=== PATIENT | female | born 1955 | race Hispanic/Latino ===

== ENCOUNTER 2020-06-22 18:50 | Emergency (ER) | payer MEDICARE ==
[~2020-06-22] VITALS: Ht 152.4 cm; Wt 98.9 kg
[2020-06-22] MEDS ORDERED: PANTOPRAZOLE 40 MG 10ML VIAL IV STA (19:34)
[2020-06-22] MEDS ORDERED: CEFEPIME 1GM/NS 0.9% 50 ML 50 ML IV STA (19:49)
[2020-06-22] MEDS ORDERED: SODIUM CHLORIDE 0.9% 1000ML 1,000 ML IV STA (19:49)
[2020-06-22 20:34] LABS: BASOPHILS % 0.3 % (0.0-1.0); HEMATOCRIT 24.4 % (34.2-44.1); HEMOGLOBIN 7.6 g/dL (12.0-16.0); LYMPHOCYTES # (AUTO) 0.5 (1.0-3.2); LYMPHOCYTES % 16.9 % (18.0-39.1); MEAN CORPUSCULAR HGB CONC 31.1 g/dL (31-35); MEAN CORPUSCULAR VOLUME 106.1 fL (81-99); MONOCYTES # (AUTO) 0.1 (0.2-0.8); MONOCYTES % 3.6 % (4.4-11.3); NEUTROPHILS # (AUTO) 2.4 (2.1-6.9); NEUTROPHILS % 78.9 % (38.7-80.0); PLATELET COUNT 119 x10e3/uL (140-360); RED CELL DISTRIBUTION WIDTH 17.3 % (11.7-14.4)
[2020-06-22] MEDS ORDERED: CEFEPIME HCL 1 GM VIAL ONE (20:48)
[2020-06-22] MEDS ORDERED: SODIUM CHLORIDE 0.9% 50ML 50 ML ONE ×2 (20:48→21:17)
[2020-06-22 20:54] LABS: ALANINE AMINOTRANSFERASE 36 IU/L (0-55); ALBUMIN 1.9 g/dL (3.5-5.0); ALBUMIN/GLOBULIN RATIO 0.5 (0.8-2.0); ALKALINE PHOSPHATASE 172 IU/L (40-150); ANION GAP 13.5 mmol/L (8-16); BLOOD UREA NITROGEN 39 mg/dL (7-26); BUN/CREATININE RATIO 49 (6-25); CALCIUM 7.2 mg/dL (8.4-10.2); CARBON DIOXIDE 21 mmol/L (22-29); CHLORIDE 104 mmol/L (98-107); CREATINE KINASE 69 IU/L (29-168); CREATININE, SERUM 0.79 mg/dL (0.57-1.11); EST GLOMERULAR FILTRATION RATE > 60 ML/MIN (60-); GLUCOSE 300 mg/dL (74-118); POTASSIUM 4.5 mmol/L (3.5-5.1); SODIUM 134 mmol/L (136-145)
[2020-06-22] MEDS ORDERED: IOPAMIDOL 370 MG/ML 200 ML INFUS..BTL INJ ONE (21:17)
[2020-06-22] MEDS ORDERED: SODIUM CHLORIDE 0.9% 250ML 250 ML IV ONE (22:00)
[2020-06-23 00:34] LABS: INR 0.85; PROTHROMBIN TIME 12.2 seconds (11.9-14.5)
[2020-06-23] MEDS ORDERED: SODIUM CHLORIDE 0.9% 250ML 250 ML ONE (03:03)
[2020-06-23] MEDS ORDERED: ACYCLOVIR400 MG PO (04:50)
[2020-06-23] MEDS ORDERED: BUSPIRONE HCL10 MG PO (04:50)
[2020-06-23] MEDS ORDERED: AMBIEN10 MG PO (04:50)
[2020-06-23] MEDS ORDERED: LEVEMIR FL100 UNIT/1 SC (04:50)
[2020-06-23] MEDS ORDERED: ALENDRONATE SOD70 MG PO (04:50)
[2020-06-23] MEDS ORDERED: ENALAPRIL MALEA20 MG PO (04:50)
[2020-06-23] MEDS ORDERED: DULOXETINE HCL30 MG PO (04:50)
[2020-06-23] MEDS ORDERED: PREDNISONE5 MG PO (04:50)
[2020-06-23] MEDS ORDERED: NOVOLOG100 UNITS1 (04:50)
[2020-06-23] MEDS ORDERED: FUROSEMIDE20 MG PO (04:50)
[2020-06-23] MEDS ORDERED: GABAPENTIN300 MG PO (04:50)
[2020-06-23] MEDS ORDERED: IMURAN50 MG PO (04:50)
[2020-06-23] MEDS ORDERED: HYDRALAZINE HCL25 MG PO (04:50)
[2020-06-23] MEDS ORDERED: PANTOPRAZOLE SO40 MG PO (04:50)
== END 2020-06-23 03:25 | disposition other institution (70) ==
LOC: ER 19:07
DX: K92.0 Hematemesis (principal); I10 Essential (primary) hypertension; E11.9 Type 2 diabetes mellitus without complications; Z20.822 Contact with and (suspected) exposure to COVID-19
CPT/HCPCS: 36415; 71045; 74177; 80053; 82550; 82553; 83605; 84484; 85025; 85610; 86850; 86900; 86920; 87040; 93005; 99284; C9113; J0692 ×2; J7030; J7050 ×2; P9016; Q9967; U0002

== ENCOUNTER 2020-07-13 19:48 | Inpatient (IN) | payer MEDICARE ==
[~2020-07-13] VITALS: Ht 152.4 cm; Wt 98.9 kg
[~2020-07-13 19:48] MED LIST: ACYCLOVIR400 MG PO; ALENDRONATE SOD70 MG PO; AMBIEN10 MG PO; BUSPIRONE HCL10 MG PO; DULOXETINE HCL30 MG PO; ENALAPRIL MALEA20 MG PO; FUROSEMIDE20 MG PO; GABAPENTIN300 MG PO; HYDRALAZINE HCL25 MG PO; IMURAN50 MG PO; LEVEMIR FL100 UNIT/1 SC; NOVOLOG100 UNITS1; PANTOPRAZOLE SO40 MG PO; PREDNISONE5 MG PO
[2020-07-13] MEDS ORDERED: PANTOPRAZOLE 40 MG 10ML VIAL IV STA (20:11)
[2020-07-13] MEDS ORDERED: ASPIRIN 81 MG CHEW TAB PO ONE (20:15)
[2020-07-13 20:36] LABS: LYMPHOCYTES # (AUTO) 0.7 (1.0-3.2); MEAN CORPUSCULAR HEMOGLOBIN 31.2 pg (28-32); MEAN CORPUSCULAR HGB CONC 30.7 g/dL (31-35); MEAN CORPUSCULAR VOLUME 101.4 fL (81-99); MONOCYTES # (AUTO) 0.1 (0.2-0.8); MONOCYTES % 2.6 % (4.4-11.3); NEUTROPHILS # (AUTO) 1.5 (2.1-6.9); PLATELET COUNT 134 x10e3/uL (140-360); RED BLOOD COUNT 2.15 x10e6/uL (3.6-5.1); RED CELL DISTRIBUTION WIDTH 18.7 % (11.7-14.4)
[2020-07-13 20:40] LABS: HEMATOCRIT 21.8 % (34.2-44.1); HEMOGLOBIN 6.7 g/dL (12.0-16.0)
[2020-07-13 20:57] LABS: ALANINE AMINOTRANSFERASE 33 IU/L (0-55); ALBUMIN 2.1 g/dL (3.5-5.0); ALBUMIN/GLOBULIN RATIO 0.6 (0.8-2.0); ALKALINE PHOSPHATASE 167 IU/L (40-150); ANION GAP 11.1 mmol/L (8-16); BLOOD UREA NITROGEN 40 mg/dL (7-26); BUN/CREATININE RATIO 49 (6-25); CALCIUM 7.7 mg/dL (8.4-10.2); CARBON DIOXIDE 20 mmol/L (22-29); CHLORIDE 103 mmol/L (98-107); CREATINE KINASE 95 IU/L (29-168); CREATININE, SERUM 0.82 mg/dL (0.57-1.11); EST GLOMERULAR FILTRATION RATE > 60 ML/MIN (60-); GLUCOSE 351 mg/dL (74-118); POTASSIUM 4.1 mmol/L (3.5-5.1); SODIUM 130 mmol/L (136-145)
[2020-07-13] MEDS ORDERED: OCTREOTIDE ACETATE 500 MCG in SODIUM CHLORIDE 0.9% 250ML 250 ML IV STA (20:58)
[2020-07-13] MEDS ORDERED: SODIUM CHLORIDE 0.9% 250ML 250 ML IV ONE (21:00)
[2020-07-13] MEDS ORDERED: OCTREOTIDE ACETATE 0.05 MG in SODIUM CHLORIDE 0.9% 250ML 250 ML IV STA (21:45)
[2020-07-13] MEDS: PANTOPRAZOLE INJ 40 MG in SODIUM CHLORIDE 0.9% 50ML 50 ML IV SCH (21:51)
[2020-07-13] MEDS ORDERED: SODIUM CHLORIDE 0.9% IV STA (21:55)
[2020-07-13] MEDS ORDERED: OCTREOTIDE ACETATE IV STA (21:55)
[2020-07-13 22:30] VITALS: BP 148/77
[2020-07-14] VITALS (8 sets, daily range): BP systolic 117–148; BP diastolic 59–87
[2020-07-14] MEDS ORDERED: SODIUM CHLORIDE 0.9% 250ML 250 ML ONE ×2 (00:45→08:41)
[2020-07-14 00:49] LABS: INR 0.81; PROTHROMBIN TIME 11.8 seconds (11.9-14.5)
[2020-07-14 00:55] LABS: % IRON SATURATION 8 % (15-50); IRON 31 ug/dL (50-170); TOTAL IRON BINDING CAPACITY 367 ug/dL (261-478); TRANSFERRIN 262 mg/dL (180-382)
[2020-07-14] MEDS: PANTOPRAZOLE INJ 40 MG in SODIUM CHLORIDE 0.9% 50ML 50 ML IV SCH ×5 (01:51→21:15)
[2020-07-14] MEDS ORDERED: OCTREOTIDE ACETATE IV STA ×2 (02:34→02:52)
[2020-07-14] MEDS ORDERED: SODIUM CHLORIDE 0.9% IV STA ×2 (02:34→02:52)
[2020-07-14 03:56] LABS: INR 0.84; PROTHROMBIN TIME 12.1 seconds (11.9-14.5)
[2020-07-14] MEDS ORDERED: OCTREOTIDE ACETATE 0.05 MG/ML AMP ONE (04:02)
[2020-07-14] MEDS ORDERED: SUCRALFATE1 GM PO (08:23)
[2020-07-14] MEDS ORDERED: FLUCONAZOLE100 MG PO (08:23)
[2020-07-14] MEDS ORDERED: DEXTROSE 50% SYRINGE 50 ML IV PRN (11:00)
[2020-07-14] MEDS: IRON SUCROSE 100 MG in SODIUM CHLORIDE 0.9% 100 ML 100 ML IV SCH (12:06)
[2020-07-14] MEDS: CYANOCOBALAMIN INJ 1,000 MCG/ML VIAL IM SCH (12:11)
[2020-07-14] MEDS ORDERED: PROPOFOL IV EMULSION 10 MG/ML 20 ML VIAL ONE (12:46)
[2020-07-14] MEDS ORDERED: POVIDONE IODINE 0.05% 0.05 % ML PO ONE (12:46)
[2020-07-14] MEDS ORDERED: FENTANYL CITRATE/PF 100MCG/2 ML INJ ONE (13:12)
[2020-07-14] MEDS ORDERED: MIDAZOLAM HCL 2 MG/2 ML VIAL ONE (13:12)
[2020-07-14] MEDS: OCTREOTIDE ACETATE 500 MCG in SODIUM CHLORIDE 0.9% 250ML 249 ML IV SCH ×2 (13:45→18:30)
[2020-07-14 14:08] LABS: EOSINOPHILS % 0.7 % (0.0-6.0); HEMATOCRIT 26.8 % (34.2-44.1); HEMOGLOBIN 8.6 g/dL (12.0-16.0); LYMPHOCYTES # (AUTO) 0.5 (1.0-3.2); LYMPHOCYTES % 36.3 % (18.0-39.1); MEAN CORPUSCULAR HEMOGLOBIN 31.4 pg (28-32); MEAN CORPUSCULAR HGB CONC 32.1 g/dL (31-35); MEAN CORPUSCULAR VOLUME 97.8 fL (81-99); MONOCYTES # (AUTO) 0.1 (0.2-0.8); MONOCYTES % 10.4 % (4.4-11.3); NEUTROPHILS # (AUTO) 0.7 (2.1-6.9); NEUTROPHILS % 51.9 % (38.7-80.0); PLATELET COUNT 100 x10e3/uL (140-360); RED BLOOD COUNT 2.74 x10e6/uL (3.6-5.1); RED CELL DISTRIBUTION WIDTH 18.1 % (11.7-14.4)
[2020-07-14 14:29] LABS: ALANINE AMINOTRANSFERASE 32 IU/L (0-55); ALBUMIN 2.1 g/dL (3.5-5.0); ALBUMIN/GLOBULIN RATIO 0.6 (0.8-2.0); ALKALINE PHOSPHATASE 132 IU/L (40-150); ANION GAP 9.5 mmol/L (8-16); BLOOD UREA NITROGEN 24 mg/dL (7-26); BUN/CREATININE RATIO 40 (6-25); CALCIUM 7.7 mg/dL (8.4-10.2); CARBON DIOXIDE 24 mmol/L (22-29); CHLORIDE 110 mmol/L (98-107); EST GLOMERULAR FILTRATION RATE > 60 ML/MIN (60-); GLUCOSE 91 mg/dL (74-118); POTASSIUM 3.5 mmol/L (3.5-5.1); SODIUM 140 mmol/L (136-145)
[2020-07-14] MEDS ORDERED: ACETAMINOPHEN 325 MG TAB PO PRN (16:30)
[2020-07-14] MEDS ORDERED: TEMAZEPAM 7.5 MG CAP PO PRN (16:30)
[2020-07-14] MEDS ORDERED: POLYETHYLENE GLYCOL 3350 17 GM PACK PO PRN (16:30)
[2020-07-14] MEDS ORDERED: HYDRALAZINE HCL 20 MG/ML VIAL IV PRN (16:30)
[2020-07-14] MEDS ORDERED: ONDANSETRON HCL INJ 2MG/ML 2ML 2 MG/ML VIAL IV PRN (16:30)
[2020-07-14] MEDS ORDERED: TEMAZEPAM 15 MG CAP PO PRN (16:45)
[2020-07-14] MEDS: HYDRALAZINE HCL 25 MG TAB PO SCH (17:00)
[2020-07-14] MEDS: PREDNISONE 5 MG TAB PO SCH (17:00)
[2020-07-14] MEDS: AZATHIOPRINE 50 MG TAB PO SCH (17:00)
[2020-07-14] MEDS ORDERED: NON-FORMULARY MEDICATION (Enalapril Maleate 20 MG) PO SCH (17:00)
[2020-07-14] MEDS: DOCUSATE SODIUM 100 MG CAP PO SCH (17:00)
[2020-07-14] MEDS: ENALAPRIL MALEATE 10 MG TAB PO SCH (17:00)
[2020-07-14] MEDS: BUSPIRONE HCL 10 MG TABLET PO SCH (17:00)
[2020-07-14 17:57] LABS: CLARITY,URINE CLEAR (CLEAR); COLOR,URINE YELLOW (YELLOW)
[2020-07-14 17:58] LABS: KETONES,URINE NEGATIVE (NEGATIVE); LEUKOCYTE ESTERASE ,URINE SMALL (NEGATIVE); NITRITE,URINE POSITIVE (NEGATIVE); PROTEIN,URINE DIPSTICK NEGATIVE (NEGATIVE)
[2020-07-14 18:10] LABS: BACTERIA,URINE MODERATE /HPF
[2020-07-14] MEDS ORDERED: ZOLPIDEM TARTRATE 10 MG TAB PO SCH (21:00)
[2020-07-14] MEDS: GABAPENTIN 300 MG CAP PO SCH (21:15)
[2020-07-14] MEDS: SUCRALFATE 1 GM TAB PO SCH (21:15)
[2020-07-15 02:07] VITALS: BP 129/61
[2020-07-15] MEDS: PANTOPRAZOLE INJ 40 MG in SODIUM CHLORIDE 0.9% 50ML 50 ML IV SCH ×2 (03:00→09:45)
[2020-07-15] MEDS: OCTREOTIDE ACETATE 500 MCG in SODIUM CHLORIDE 0.9% 250ML 249 ML IV SCH (03:44)
[2020-07-15 04:52] LABS: BASOPHILS % 0.8 % (0.0-1.0); HEMATOCRIT 27.4 % (34.2-44.1); HEMOGLOBIN 8.6 g/dL (12.0-16.0); LYMPHOCYTES # (AUTO) 0.5 (1.0-3.2); LYMPHOCYTES % 41.4 % (18.0-39.1); MEAN CORPUSCULAR HEMOGLOBIN 30.5 pg (28-32); MEAN CORPUSCULAR HGB CONC 31.4 g/dL (31-35); MEAN CORPUSCULAR VOLUME 97.2 fL (81-99); MONOCYTES # (AUTO) 0.1 (0.2-0.8); MONOCYTES % 10.9 % (4.4-11.3); NEUTROPHILS # (AUTO) 0.6 (2.1-6.9); NEUTROPHILS % 46.9 % (38.7-80.0); PLATELET COUNT 102 x10e3/uL (140-360); RED BLOOD COUNT 2.82 x10e6/uL (3.6-5.1); RED CELL DISTRIBUTION WIDTH 18.3 % (11.7-14.4)
[2020-07-15 05:19] VITALS: BP 137/72
[2020-07-15 05:21] LABS: ALANINE AMINOTRANSFERASE 45 IU/L (0-55); ALBUMIN/GLOBULIN RATIO 0.6 (0.8-2.0); ALKALINE PHOSPHATASE 140 IU/L (40-150); ANION GAP 13.1 mmol/L (8-16); BLOOD UREA NITROGEN 18 mg/dL (7-26); BUN/CREATININE RATIO 29 (6-25); CALCIUM 7.6 mg/dL (8.4-10.2); CARBON DIOXIDE 23 mmol/L (22-29); CHLORIDE 106 mmol/L (98-107); CHOL/HDL RATIO 5.4 (3.0-3.6); CHOLESTEROL 158 MD/DL (0-199); CREATININE, SERUM 0.63 mg/dL (0.57-1.11); EST GLOMERULAR FILTRATION RATE > 60 ML/MIN (60-); GLUCOSE 164 mg/dL (74-118); HDL CHOLESTEROL 29 MG/DL (40-60); LDL CHOLESTEROL 91 MG/DL (60-130); MAGNESIUM 1.7 MG/DL (1.3-2.1); PHOSPHORUS 4.3 MG/DL (2.3-4.7); POTASSIUM 4.1 mmol/L (3.5-5.1); SODIUM 138 mmol/L (136-145); TRIGLYCERIDES 190 MG/DL (0-149)
[2020-07-15 05:33] LABS: THYROID STIMULATING HORMONE 0.577 uIU/mL (0.350-4.940)
[2020-07-15 06:30] LABS: ANISOCYTOSIS SLIGHT; EOSINOPHILS % (MANUAL) 1 % (0-7); LYMPHOCYTES % (MANUAL) 41 % (19-48); MONOCYTES % (MANUAL) 5 % (3.4-9.0); NEUTROPHILS % (MANUAL) 51 % (40-74); NUCLEATED RED BLOOD CELLS 1; PLATELET ESTIMATE SLIGHTLY DECREASED
[2020-07-15 06:31] LABS: OVALOCYTES MODERATE
[2020-07-15 06:32] LABS: SCHISTOCYTES FEW
[2020-07-15 06:33] LABS: ELLIPTOCYTE, RBC SLIGHT; PLATELET MORPHOLOGY COMMENT NORMAL; RBC MORPHOLOGY COMMENT ABNORMAL
[2020-07-15 08:42] VITALS: BP 159/89
[2020-07-15 08:58] VITALS: BP 159/89
[2020-07-15] MEDS ORDERED: ACYCLOVIR 200 MG CAP PO SCH (09:00)
[2020-07-15] MEDS ORDERED: ACYCLOVIR 400 MG PO SCH (09:00)
[2020-07-15] MEDS ORDERED: FUROSEMIDE 20 MG TAB PO SCH (09:00)
[2020-07-15] MEDS ORDERED: DULOXETINE HCL 30 MG DELAYED RELEASE PO SCH (09:00)
[2020-07-15] MEDS: PREDNISONE 5 MG TAB PO SCH ×2 (09:45→17:00)
[2020-07-15] MEDS: BUSPIRONE HCL 10 MG TABLET PO SCH ×2 (09:45→17:24)
[2020-07-15] MEDS: GABAPENTIN 300 MG CAP PO SCH ×2 (09:45→17:25)
[2020-07-15] MEDS: DOCUSATE SODIUM 100 MG CAP PO SCH ×2 (09:45→17:24)
[2020-07-15] MEDS: HYDRALAZINE HCL 25 MG TAB PO SCH ×2 (09:45→17:25)
[2020-07-15] MEDS: ENALAPRIL MALEATE 10 MG TAB PO SCH ×2 (09:45→17:00)
[2020-07-15] MEDS: SUCRALFATE 1 GM TAB PO SCH ×3 (09:45→17:25)
[2020-07-15] MEDS: AZATHIOPRINE 50 MG TAB PO SCH ×2 (09:45→17:24)
[2020-07-15 12:02] VITALS: BP 151/67
[2020-07-15] MEDS ORDERED: TRAMADOL HCL 50 MG TAB PO PRN (13:15)
[2020-07-15] MEDS: IRON SUCROSE 100 MG in SODIUM CHLORIDE 0.9% 100 ML 100 ML IV SCH (13:23)
[2020-07-15] MEDS: CYANOCOBALAMIN INJ 1,000 MCG/ML VIAL IM SCH (13:23)
[2020-07-15] MEDS ORDERED: ULTRAM 50MG50 MG PO (14:39)
[2020-07-15] MEDS ORDERED: SIMETHICONE80 MG PO (14:39)
[2020-07-15] MEDS ORDERED: CARAFATE1 GM PO (14:39)
[2020-07-15] MEDS ORDERED: Cyanocobalamin Inj IM (14:39)
[2020-07-15] MEDS ORDERED: MIRALAX17 GM PO (14:39)
[2020-07-15] MEDS ORDERED: PROTONIX IV40 MG IV (14:39)
[2020-07-15] MEDS ORDERED: ACETAMINOPHEN325 M1 PO (14:39)
[2020-07-15] MEDS ORDERED: HYDRALAZIN20 MG/1 ML IV (14:39)
[2020-07-15] MEDS ORDERED: VENOFER100 MG/5 M IV (14:39)
[2020-07-15] MEDS ORDERED: COLACE100 MG PO (14:39)
[2020-07-15] MEDS ORDERED: ONDANSETRON4 MG/2 M1 IV (14:39)
[2020-07-15] MEDS ORDERED: DEXTROSE 50%-WA50 M1 IV (14:39)
[2020-07-15] MEDS ORDERED: RESTORIL15 MG PO (14:39)
[2020-07-15] MEDS ORDERED: SODIUM CHLORIDE 0.9% 250ML 250 ML ONE (18:40)
== END 2020-07-15 18:43 | disposition short-term general hospital (02) | DRG 378 ==
LOC: ER 20:11 → ERHOLD 21:03 → MED/SURG2 22:30
PROVIDERS: ADMIT Internal Medicine; ATTEND Internal Medicine
PROC: 02HV33Z Insertion of Infusion Device into Superior Vena Cava, Percutaneous Approach (ICD-10-PCS; 2020-07-14)
PROC: 0DB78ZX Excision of Stomach, Pylorus, Via Natural or Artificial Opening Endoscopic, Diagnostic (ICD-10-PCS; principal; 2020-07-14 17:00)
DX: K29.71 Gastritis, unspecified, with bleeding (principal); D62 Acute posthemorrhagic anemia; M33.90 Dermatopolymyositis, unspecified, organ involvement unspecified; Z68.41 Body mass index [BMI] 40.0-44.9, adult; K76.6 Portal hypertension; N39.0 Urinary tract infection, site not specified; I85.00 Esophageal varices without bleeding; K29.70 Gastritis, unspecified, without bleeding; Z20.822 Contact with and (suspected) exposure to COVID-19; E11.65 Type 2 diabetes mellitus with hyperglycemia; E66.01 Morbid (severe) obesity due to excess calories; I86.8 Varicose veins of other specified sites; R33.9 Retention of urine, unspecified; B95.2 Enterococcus as the cause of diseases classified elsewhere; D69.6 Thrombocytopenia, unspecified; D46.9 Myelodysplastic syndrome, unspecified
CPT/HCPCS: 36415; 36569; 43239; 71045; 80053; 80061; 81001; 82550; 82553; 82607; 82746; 82948; 83036; 83540; 83690; 83735; 84100; 84443; 84466; 84484; 85025; 85045; 85610; 86850; 86900; 86920; 87086; 87186; 88305; 88312; 93005; 96366; 97139; 99284; J1756; J2250; J2353; J2354; J3010; J3420; J7050; J7512; J7799; P9016; U0002